=== PATIENT | female | born 1950 | race Caucasian/White ===

== ENCOUNTER 2016-09-15 19:52 | Emergency (ER) | payer OTHER ==
[~2016-09-15] VITALS: Ht 170.2 cm; Wt 131.8 kg
[~2016-09-15 19:52] MED LIST: LISI-659 PO
[2016-09-15] MEDS ORDERED: KETOROLAC TROMETHAMINE 30 MG/ML VIAL IVP ONE (20:30)
[2016-09-15 23:44] VITALS: BP 141/74
== END 2016-09-15 23:50 | disposition home or self-care (01) ==
LOC: EMS 19:53
DX: S40.011A Contusion of right shoulder, initial encounter (principal); I10 Essential (primary) hypertension; W07.XXXA Fall from chair, initial encounter; Y93.89 Activity, other specified; Y92.9 Unspecified place or not applicable; Y99.9 Unspecified external cause status
CPT/HCPCS: 72040; 73030; 96374; 99284; J1885